=== PATIENT | female | born 1965 | race Caucasian/White ===

== ENCOUNTER 2017-06-21 05:05 | Emergency (ER) | payer OTHER ==
[~2017-06-21] VITALS: Ht 165.1 cm; Wt 91.3 kg
[~2017-06-21 05:05] MED LIST: ABILIFY10 MG PO; ATIVAN0.5 MG PO; CLONAZEPAM0.5 MG PO; CYMBALTA30 MG PO; EFFEXOR XR37.5 MG PO; FANAPT6 MG PO; GABAPENTIN300 MG PO; GRALISE300 MG PO; KLONOPIN0.5 M1 PO; LAMOTRIGINE150 MG PO; LANSOPRAZOLE30 MG PO; LITHIUM CARBON450 MG PO; MACROBID100 MG PO; MULTICHEW CHEW1 EACH PO; PREVACID30 MG PO; PROPRANOLOL HCL20 MG PO; PYRIDIUM200 MG PO; ULTRAM ER100 MG PO; ULTRAM50 MG PO; VENLAFAXINE H37.5 MG PO; VENTOLIN HFA18 GM IH; ZYRTEC10 M3 PO
[2017-06-21 05:56] LABS: HEMATOCRIT 38.2 % (36.0-46.0); HEMOGLOBIN 12.8 G/DL (11.9-15.5); MCH 29.8 PG (29.0-34.0); MCHC 33.5 G/DL (30.0-36.0); PLATELET COUNT 257 K/uL (156-360); RBC DIS.WIDTH-CV 13.1 % (11.8-14.6); RBC DIS.WIDTH-SD 42.5 % (39-53); RED BLOOD COUNT 4.29 M/uL (3.80-5.20); WHITE BLOOD COUNT 7.3 K/uL (4.1-10.2)
[2017-06-21 06:07] LABS: CHLORIDE 104 mEq/L (99-109); POTASSIUM 3.6 mEq/L (3.7-5.4); SODIUM 139 mEq/L (136-147)
[2017-06-21 06:09] LABS: GLUCOSE 154 mg/dL (70-99)
[2017-06-21 06:13] LABS: CREATININE 0.8 mg/dL (0.6-1.3); GFR ESTIMATE (CALCULATED) > 59 mL/min/; UREA NITROGEN (BUN) 13 mg/dL (9-23)
[2017-06-21 06:32] LABS: TROP-I INTERPRETATION NEGATIVE; TROPONIN-I < 0.01 ng/mL (0.0-0.30)
[2017-06-21] MEDS ORDERED: PREDNISONE20 MG PO (07:12)
[2017-06-21] MEDS ORDERED: PROVENTIL HFA6.7 GM IH (07:12)
[2017-06-21] MEDS ORDERED: ZITHROMAX Z-PA250 MG PO (07:12)
[2017-06-21 07:23] VITALS: BP 130/74
== END 2017-06-21 07:24 | disposition home or self-care (01) ==
LOC: EME 05:05
DX: J45.901 Unspecified asthma with (acute) exacerbation (principal); I10 Essential (primary) hypertension; Z90.710 Acquired absence of both cervix and uterus; Z90.49 Acquired absence of other specified parts of digestive tract; Z88.0 Allergy status to penicillin
CPT/HCPCS: 71046; 80048; 83880; 84484; 85027; 93005; 94640; 99281; 99284; J7512